=== PATIENT | female | born 1985 | race African-American/Black ===

== ENCOUNTER 2016-11-13 06:06 | Emergency (ER) | payer OTHER ==
[~2016-11-13] VITALS: Ht 165.1 cm; Wt 106.0 kg
[~2016-11-13 06:06] MED LIST: ADVAIR 500/501 DISK IH; ALBUTEROL SULF8.5 GM IH; AMBIEN10 MG PO; ATROVENT 00.5 MG/2.5 IH; CLARITIN10 M3 PO; COMBIVENT200 INHALA IH; DOXYCYCLINE HY100 MG PO; PREDNISONE10 MG PO; PREDNISONE50 MG PO; SINGULAIR10 MG PO; XANAX2 MG PO; ZANTAC150 MG PO; ZESTORETIC 20-1 EAC1 PO
[2016-11-13] MEDS ORDERED: ZITHROMAX Z-PA250 MG PO (10:10)
[2016-11-13] MEDS ORDERED: PREDNISONE50 MG PO ×2 (10:10→10:12)
[2016-11-13 10:22] VITALS: BP 113/83
== END 2016-11-13 10:31 | disposition home or self-care (01) ==
LOC: EME 06:06
DX: J45.901 Unspecified asthma with (acute) exacerbation (principal); J20.9 Acute bronchitis, unspecified; I10 Essential (primary) hypertension; F17.200 Nicotine dependence, unspecified, uncomplicated
CPT/HCPCS: 71020; 94640; 94640 76; 99281; 99285; J2405; J2930; J7030; J7512

== ENCOUNTER 2017-01-04 20:23 | Emergency (ER) | payer OTHER ==
[~2017-01-04] VITALS: Ht 165.1 cm; Wt 102.9 kg
[~2017-01-04 20:23] MED LIST changes: +ZITHROMAX Z-PA250 MG PO
[2017-01-04 21:26] LABS: HEMATOCRIT 31.9 % (36.0-46.0); MCHC 33.9 G/DL (30.0-36.0); MCV 94.7 FL (83-99); MEAN PLAT.VOLUME 10.9 uM^3 (9.5-12.4); PLATELET COUNT 265 K/uL (156-360); RBC DIS.WIDTH-CV 12.7 % (11.8-14.6); RBC DIS.WIDTH-SD 44.1 % (39-53); RED BLOOD COUNT 3.37 M/uL (3.80-5.20); WHITE BLOOD COUNT 7.2 K/uL (4.1-10.2)
[2017-01-04 21:34] LABS: CHLORIDE 106 mEq/L (99-109); POTASSIUM 4.1 mEq/L (3.7-5.4); SODIUM 141 mEq/L (136-147)
[2017-01-04 21:36] LABS: GLUCOSE 100 mg/dL (70-99)
[2017-01-04 21:37] LABS: ANION GAP 10 MEQ/L (2-14)
[2017-01-04 21:40] LABS: GFR ESTIMATE (CALCULATED) > 59 mL/min/; UREA NITROGEN (BUN) 16 mg/dL (9-23)
[2017-01-04 21:47] LABS: QUANTITATIVE HCG < 4.0 MIU/ML
[2017-01-04] MEDS ORDERED: PREDNISONE20 MG PO (23:27)
[2017-01-04 23:41] VITALS: BP 113/77
== END 2017-01-04 23:57 | disposition home or self-care (01) ==
LOC: EME 20:23
PROVIDERS: Physician Assistant
DX: J45.901 Unspecified asthma with (acute) exacerbation (principal); I10 Essential (primary) hypertension; Z87.891 Personal history of nicotine dependence; Z91.14 Patient's other noncompliance with medication regimen
CPT/HCPCS: 71020; 80048; 84702; 85027; 94640; 94640 76; 99281; 99284; J2930; J7030

== ENCOUNTER 2017-08-08 00:14 | Emergency (ER) | payer OTHER ==
[~2017-08-08] VITALS: Ht 165.1 cm; Wt 112.3 kg
[~2017-08-08 00:14] MED LIST changes: +PREDNISONE20 MG PO
[2017-08-08] MEDS ORDERED: PREDNISONE50 MG PO (03:23)
[2017-08-08 03:40] VITALS: BP 146/73
== END 2017-08-08 03:43 | disposition home or self-care (01) ==
LOC: EME 00:14
DX: J45.902 Unspecified asthma with status asthmaticus (principal); Z79.51 Long term (current) use of inhaled steroids; I10 Essential (primary) hypertension; F17.200 Nicotine dependence, unspecified, uncomplicated
CPT/HCPCS: 71045; 94640 76; 94644; 99281; 99285; J2930; J3475

== ENCOUNTER 2017-10-20 22:23 | Inpatient (IN) | payer OTHER ==
[~2017-10-20] VITALS: Ht 167.6 cm; Wt 118.4 kg
[2017-10-20] MEDS ORDERED: PREDNISONE50 MG PO (23:18)
[2017-10-20] MEDS ORDERED: HYCODAN SYRUP480 ML PO (23:18)
[2017-10-21 00:51] LABS: HEMATOCRIT 31.9 % (36.0-46.0); MCH 32.1 PG (29.0-34.0); MCHC 34.5 G/DL (30.0-36.0); PLATELET COUNT 277 K/uL (156-360); RBC DIS.WIDTH-CV 13.2 % (11.8-14.6); RBC DIS.WIDTH-SD 45.1 % (39-53); RED BLOOD COUNT 3.43 M/uL (3.80-5.20); WHITE BLOOD COUNT 9.2 K/uL (4.1-10.2)
[2017-10-21 01:03] LABS: CHLORIDE 104 mEq/L (99-109); POTASSIUM 3.7 mEq/L (3.7-5.4); SODIUM 137 mEq/L (136-147)
[2017-10-21 01:04] LABS: GLUCOSE 99 mg/dL (70-99)
[2017-10-21 01:08] LABS: CREATININE 0.9 mg/dL (0.6-1.3); GFR ESTIMATE (CALCULATED) > 59 mL/min/
[2017-10-21 01:09] LABS: UREA NITROGEN (BUN) 13 mg/dL (9-23)
[2017-10-21 01:18] LABS: QUANTITATIVE HCG < 4.0 MIU/ML
[2017-10-21] MEDS ORDERED: XANAX1 MG PO (01:57)
[2017-10-21] MEDS ORDERED: ABILIFY10 MG PO (01:58)
[2017-10-21] MEDS ORDERED: BELSOMRA20 MG PO (01:58)
[2017-10-21] MEDS ORDERED: VENTOLIN HFA18 GM IH (01:59)
[2017-10-21] MEDS ORDERED: MONTELUKAST SOD10 MG PO (01:59)
[2017-10-21] MEDS ORDERED: ADIPEX-P37.5 M1 PO (02:00)
[2017-10-21] MEDS ORDERED: FLONASE16 G1 BOTH NARES (02:00)
[2017-10-21] MEDS ORDERED: LYRICA50 MG PO (02:01)
[2017-10-21] MEDS ORDERED: QVAR REDIHALE10.6 G1 IH (02:02)
[2017-10-21 04:34] VITALS: BP 113/74
[2017-10-21 07:08] VITALS: BP 125/70
[2017-10-21 10:54] VITALS: BP 119/70
[2017-10-21 15:08] VITALS: BP 122/68
[2017-10-21 19:20] VITALS: BP 131/81
[2017-10-21 22:39] VITALS: BP 111/55
[2017-10-22 04:18] VITALS: BP 132/60
[2017-10-22 06:40] LABS: BASOPHIL (%) 0.1 % (0-1); EOSINOPHIL (%) 0 % (0-5); HEMATOCRIT 36.6 % (36.0-46.0); IMMATURE GRANULOCYTE (%) 0.7 % (0.0-0.7); LYMPHOCYTE (%) 9.5 % (15-42); LYMPHOCYTE COUNT 1.3 K/uL (1.0-2.8); MCH 30.9 PG (29.0-34.0); MCHC 32.8 G/DL (30.0-36.0); MCV 94.3 FL (83-99); MONOCYTE (%) 2.9 % (3-12); MONOCYTE COUNT 0.4 K/uL (0-0.8); NEUTROPHIL (%) 86.8 % (45-76); NEUTROPHIL COUNT 11.7 K/uL (1.8-6.4); PLATELET COUNT 358 K/uL (156-360); RBC DIS.WIDTH-CV 13.4 % (11.8-14.6); RBC DIS.WIDTH-SD 46.9 % (39-53); RED BLOOD COUNT 3.88 M/uL (3.80-5.20); WHITE BLOOD COUNT 13.5 K/uL (4.1-10.2)
[2017-10-22 07:03] LABS: CHLORIDE 100 MEQ/L (99-109); CREATININE 0.8 MG/DL (0.6-1.3); GFR ESTIMATE (CALCULATED) > 59 mL/min/; SODIUM 134 MEQ/L (136-147); UREA NITROGEN (BUN) 17 mg/dL (9-23)
[2017-10-22 07:16] LABS: GLUCOSE 160 mg/dL (70-99); POTASSIUM 4.6 MEQ/L (3.7-5.4)
[2017-10-22 07:30] VITALS: BP 116/71
[2017-10-22 11:35] VITALS: BP 107/57
[2017-10-22] MEDS ORDERED: LEVAQUIN750 MG PO (15:12)
[2017-10-22] MEDS ORDERED: PREDNISONE10 MG PO (15:13)
[2017-10-22] MEDS ORDERED: DUONEB 2.5-0.5 M3 ML AEROSOL (15:14)
[2017-10-22] MEDS ORDERED: AERONEB GO NEB1 EACH MC (15:46)
[2017-10-22 16:00] VITALS: BP 121/64
[2017-10-22] MEDS ORDERED: DIFLUCAN200 MG PO (16:53)
== END 2017-10-22 17:48 | disposition home or self-care (01) | DRG 194 ==
LOC: EME 22:23 → 5EAST 10-21 02:05 → EDOF 10-21 02:05 → ENRESERV 10-21 02:07 → 5EAST 10-21 02:49
PROVIDERS: Emergency Medicine; Physician Assistant
DX: J18.9 Pneumonia, unspecified organism (principal); I10 Essential (primary) hypertension; J45.41 Moderate persistent asthma with (acute) exacerbation; F31.9 Bipolar disorder, unspecified; F41.9 Anxiety disorder, unspecified; F60.3 Borderline personality disorder; Z79.899 Other long term (current) drug therapy; Z82.49 Family history of ischemic heart disease and other diseases of the circulatory system; Z87.891 Personal history of nicotine dependence
CPT/HCPCS: 71046; 80048; 83605; 84702; 85025; 85027; 87040; 87070; 87205; 87449; 94640; 94799; 99281; 99285; J1100; J1650; J1956; J2920; J2930